=== PATIENT | female | born 1965 | race Caucasian/White ===

== ENCOUNTER → 2020-08-28 | Outpatient (CLI) | payer BC ==
--- NOTE | 2020-08-28 11:07 | RAD ---
Examination: US BREAST LT History: Reason: ABNORMAL MAMMOGRAM CALLBACK Comparison/Correlation: 10/23/2018 and 04/12/2020 mammographic exams Findings: Limited left breast ultrasound exam was performed. At the 2:30 region 7 cm from the nipple, there is a 0.5 cm x 0.5 cm x 0.2 cm cyst with suggestion of internal echoes. This appears to corresp ond with the mammographic finding. Left axilla is unremarkable with no lymph node. Impression: BI-RADS Category 3-probably benign. Small complicated cyst is present. Six-month follow-up ultrasound exam to assess stability is recommended. Electronically signed by: Sean Rangel MD (08/28/2020 11:04 AM) [id number]
== END ==
LOC: US 09:58
PROVIDERS: ATTEND Nurse Practitioner Family
DX: N60.02 Solitary cyst of left breast (principal); R92.2 Inconclusive mammogram
CPT/HCPCS: 76641